=== PATIENT | male | born 1955 | race Caucasian/White ===

== ENCOUNTER 2022-02-20 08:20 | Day surgery (SDC) | payer MEDICARE ==
[2022-02-20] MEDS ORDERED: Depo-Medrol 40 MG/ML IM ONE (08:21)
[2022-02-20] MEDS ORDERED: Sodium Chloride 0.9(Preservative Free) 10 ML IJ ONE (08:21)
[2022-02-20] MEDS ORDERED: Xylocaine 1% Vial 30 ML PF IJ ONE (08:21)
[2022-02-20] MEDS ORDERED: DIPRIVAN 200 MG/20 ML IV ONE (09:58)
[2022-02-20] MEDS ORDERED: Lactated Ringers 1,000 ML IV ONE (11:00)
--- NOTE | 2022-02-20 17:33 | XRAY ---
Indication: Lumbar TL. Intraoperative fluoroscopy provided for 14 seconds. 2 digital spot image submitted for interpretation demonstrates midline posterior needle tip projecting just posterior to superior endplate of L4. Small amount of contrast injected for needle tip placement. Correlate with intraoperative findings/report.
--- NOTE | 2022-02-20 17:44 | XRAY ---
14 seconds of fluoroscopy was used in surgery for a lumbar TL.
== END 2022-02-20 10:30 | disposition home or self-care (01) ==
LOC: SDC-PAIN 08:20
PROVIDERS: ATTEND Psychiatry & Neurology Pain Medicine
DX: M54.16 Radiculopathy, lumbar region (principal); E11.9 Type 2 diabetes mellitus without complications; Z79.899 Other long term (current) drug therapy
CPT/HCPCS: 62323; 72100; 77003; 82947; J1030; J2001; J2704; Q9966

== ENCOUNTER 2022-03-13 06:55 | Day surgery (SDC) | payer MEDICARE ==
[2022-03-13] MEDS ORDERED: Depo-Medrol 40 MG/ML IM ONE (06:56)
[2022-03-13] MEDS ORDERED: BUPIVACAINE 0.5% VIAL IJ ONE (06:56)
[2022-03-13] MEDS ORDERED: DIPRIVAN 200 MG/20 ML IV ONE (08:42)
[2022-03-13] MEDS ORDERED: Lactated Ringers 1,000 ML IV ONE (14:23)
--- NOTE | 2022-03-13 17:57 | XRAY ---
Indication: Bilateral hip injection. Intraoperative fluoroscopy provided for 36 seconds. 2 digital spot images submitted for interpretation demonstrates needle tip projecting just lateral to the left and right femur necks. Small amount of contrast injected for both needle tip placement. Correlate with intraoperative findings/report.
--- NOTE | 2022-03-13 18:33 | XRAY ---
36 seconds of fluoroscopy was used in surgery for a bilateral intra-articular hip injection.
== END 2022-03-13 09:10 | disposition home or self-care (01) ==
LOC: SDC-PAIN 06:55
PROVIDERS: ATTEND Psychiatry & Neurology Pain Medicine
DX: M16.0 Bilateral primary osteoarthritis of hip (principal); E11.9 Type 2 diabetes mellitus without complications; Z79.899 Other long term (current) drug therapy
CPT/HCPCS: 20610; 73521; 77002; 82947; J1030; J2704; Q9966

== ENCOUNTER 2022-04-10 15:14 | Day surgery (SDC) | payer MEDICARE ==
[2022-04-10] MEDS ORDERED: LIDOCAINE HCL 1% 50 MG/5 ML VL PF IJ ONE (15:15)
[2022-04-10] MEDS ORDERED: Depo-Medrol 40 MG/ML IM ONE (15:15)
[2022-04-10] MEDS ORDERED: BUPIVACAINE 0.5% VIAL IJ ONE (15:15)
--- NOTE | 2022-04-10 18:46 | XRAY ---
Indication: Bilateral SI joint injection. Intraoperative fluoroscopy provided for 19 seconds. 4 digital spot image submitted for interpretation demonstrates posterior needle tip projecting over the left and right SI joint. Correlate with intraoperative findings/report.
--- NOTE | 2022-04-11 08:41 | XRAY ---
19 seconds of fluoroscopy was used in surgery for a bilateral sacroiliac joint injection.
== END 2022-04-10 17:36 | disposition home or self-care (01) ==
LOC: SDC-PAIN 15:14
PROVIDERS: ATTEND Psychiatry & Neurology Pain Medicine
DX: M46.1 Sacroiliitis, not elsewhere classified (principal); E11.9 Type 2 diabetes mellitus without complications; Z79.899 Other long term (current) drug therapy
CPT/HCPCS: 27096; 72202; 77002; 82947; J1030; J2001; G0260

== ENCOUNTER 2022-05-29 15:28 | Day surgery (SDC) | payer MEDICARE ==
[2022-05-29] MEDS ORDERED: Xylocaine 1% Vial 30 ML PF IJ ONE (15:29)
[2022-05-29] MEDS ORDERED: Depo-Medrol 40 MG/ML IM ONE (15:29)
[2022-05-29] MEDS ORDERED: BUPIVACAINE 0.5% VIAL IJ ONE (15:29)
--- NOTE | 2022-05-29 19:47 | XRAY ---
Indication: Bilateral hip injection. Intraoperative fluoroscopy provided for 31 seconds. 2 digital spot images submitted for interpretation demonstrates needle tip projecting lateral to the left and right femur neck. Small amount of contrast injected for needle tip placement. Correlate with intraoperative findings/report.
--- NOTE | 2022-05-30 19:54 | XRAY ---
31 seconds of fluoroscopy was used in surgery for bilateral intra-articular hip injections.
== END 2022-05-29 18:50 | disposition home or self-care (01) ==
LOC: SDC-PAIN 15:28
PROVIDERS: ATTEND Psychiatry & Neurology Pain Medicine
DX: M16.0 Bilateral primary osteoarthritis of hip (principal); E11.9 Type 2 diabetes mellitus without complications; Z79.899 Other long term (current) drug therapy
CPT/HCPCS: 20610; 73521; 77002; 82947; J1030; J2001; Q9966

== ENCOUNTER 2022-11-13 13:38 | Day surgery (SDC) | payer MEDICARE ==
[2022-11-13] MEDS ORDERED: Depo-Medrol 40 MG/ML IM ONE (13:39)
[2022-11-13] MEDS ORDERED: BUPIVACAINE 0.5% VIAL IJ ONE (13:39)
[2022-11-13] MEDS ORDERED: LIDOCAINE HCL 1% 50 MG/5 ML VL PF IJ ONE (13:39)
--- NOTE | 2022-11-14 07:16 | XRAY ---
Indication: Bilateral hip and bilateral greater trochanter bursa injection. Intraoperative fluoroscopy provided for 54 seconds. 4 digital spot image submitted for interpretation demonstrates needle tips projecting lateral to the left/right femur necks and lateral to the left/right greater trochanters. Small amount of contrast injected for all needle tip placement. Correlate with intraoperative findings/report.
--- NOTE | 2022-11-14 15:07 | XRAY ---
54 seconds of fluoroscopy was used in surgery for a bilateral intra-articular hip and greater trochanteric bursa injection.
== END 2022-11-13 15:15 | disposition home or self-care (01) ==
LOC: SDC-PAIN 13:38
PROVIDERS: ATTEND Psychiatry & Neurology Pain Medicine
DX: M16.0 Bilateral primary osteoarthritis of hip (principal); M70.62 Trochanteric bursitis, left hip; M70.61 Trochanteric bursitis, right hip; E11.9 Type 2 diabetes mellitus without complications; Z79.899 Other long term (current) drug therapy
CPT/HCPCS: 20610; 73522; 77002; 82947; J1030; J2001; Q9966

== ENCOUNTER 2023-01-08 14:42 | Day surgery (SDC) | payer MEDICARE ==
[2023-01-08] MEDS ORDERED: BUPIVACAINE 0.5% VIAL IJ ONE (14:43)
[2023-01-08] MEDS ORDERED: LIDOCAINE HCL 1% 50 MG/5 ML VL PF IJ ONE (14:43)
[2023-01-08] MEDS ORDERED: Depo-Medrol 40 MG/ML IM ONE (14:43)
--- NOTE | 2023-01-08 19:16 | XRAY ---
Indication: Bilateral SI joint injection. Intraoperative fluoroscopy provided for 26 seconds. 5 digital spot images submitted for interpretation demonstrates posterior needle tip projecting over the expected left and right SI joint. Correlate with intraoperative findings/report.
--- NOTE | 2023-01-09 10:12 | XRAY ---
26 seconds of fluoroscopy was used in surgery for a bilateral sacroiliac joint injection.
== END 2023-01-08 17:40 | disposition home or self-care (01) ==
LOC: SDC-PAIN 14:42
PROVIDERS: ATTEND Psychiatry & Neurology Pain Medicine
DX: M46.1 Sacroiliitis, not elsewhere classified (principal); E11.9 Type 2 diabetes mellitus without complications; Z79.899 Other long term (current) drug therapy
CPT/HCPCS: 27096; 72202; 77002; 82947; G0260; J1030; J2001

== ENCOUNTER 2023-04-02 14:32 | Day surgery (SDC) | payer MEDICARE ==
[2023-04-02] MEDS ORDERED: Sodium Chloride 0.9(Preservative Free) 10 ML IJ ONE (14:33)
[2023-04-02] MEDS ORDERED: LIDOCAINE HCL 1% 50 MG/5 ML VL PF IJ ONE (14:33)
[2023-04-02] MEDS ORDERED: Depo-Medrol 40 MG/ML IM ONE (14:33)
[2023-04-02] MEDS ORDERED: Lactated Ringers 1,000 ML IV ONE (17:32)
--- NOTE | 2023-04-02 20:15 | XRAY ---
Indication: Right L4-S1 transforaminal TL. Intraoperative fluoroscopy provided for 38 seconds. 9 digital spot images submitted for interpretation demonstrates posterior needle tips projecting over the expected right L4 and L5 nerve roots. Small amount of contrast injected for needle tip placement. Correlate with intraoperative findings/report.
--- NOTE | 2023-04-02 20:19 | XRAY ---
38 seconds of fluoroscopy was used in surgery for a right L4-S1 transforaminal TL.
== END 2023-04-02 17:55 | disposition home or self-care (01) ==
LOC: SDC-PAIN 14:32
PROVIDERS: ATTEND Psychiatry & Neurology Pain Medicine
DX: M54.16 Radiculopathy, lumbar region (principal); E11.9 Type 2 diabetes mellitus without complications; Z79.899 Other long term (current) drug therapy
CPT/HCPCS: 64483; 64484; 72100; 77003; 82947; J1030; J2001

== ENCOUNTER 2023-05-14 15:28 | Day surgery (SDC) | payer MEDICARE ==
[2023-05-14] MEDS ORDERED: Decadron 4 MG INJ IV ONE (15:29)
[2023-05-14] MEDS ORDERED: XYLOCAINE-MPF 1% 5ML SDV IJ ONE (15:29)
[2023-05-14] MEDS ORDERED: Sodium Chloride 0.9(Preservative Free) 10 ML IJ ONE (15:29)
[2023-05-14] MEDS ORDERED: Lactated Ringers 1,000 ML IV ONE (17:55)
--- NOTE | 2023-05-14 20:55 | XRAY ---
Indication: Right piriformis injection. Intraoperative fluoroscopy provided for 7 seconds. Single digital spot image submitted for interpretation demonstrates posterior needle tip projecting over right piriformis. Small amount of contrast injected for needle tip placement. Correlate with intraoperative findings/report.
--- NOTE | 2023-05-14 20:55 | XRAY ---
Indication: Right L4-S1 transforaminal TL. Intraoperative fluoroscopy provided for 40 seconds. 8 digital spot images submitted for interpretation demonstrates posterior needle tips projecting over the right L4 and L5 nerve roots. Small amount of contrast injected for needle tip placement. Correlate with intraoperative findings/report.
--- NOTE | 2023-05-15 08:46 | XRAY ---
7 seconds of fluoroscopy was used in surgery for a right piriformis injection.
--- NOTE | 2023-05-15 08:46 | XRAY ---
40 seconds of fluoroscopy was used in surgery for a right L4-S1 transforaminal TL.
== END 2023-05-14 17:48 | disposition home or self-care (01) ==
LOC: SDC-PAIN 15:28
PROVIDERS: ATTEND Psychiatry & Neurology Pain Medicine
DX: M54.16 Radiculopathy, lumbar region (principal); M79.18 Myalgia, other site; E11.9 Type 2 diabetes mellitus without complications; Z79.899 Other long term (current) drug therapy
CPT/HCPCS: 20552; 64483; 64484; 72100; 72170; 77002; 77003; 82947; J1100; Q9966

== ENCOUNTER 2023-07-02 14:42 | Day surgery (SDC) | payer MEDICARE ==
[2023-07-02] MEDS ORDERED: BUPIVACAINE 0.5% VIAL IJ ONE (14:43)
[2023-07-02] MEDS ORDERED: XYLOCAINE-MPF 1% 5ML SDV IJ ONE (14:43)
[2023-07-02] MEDS ORDERED: Depo-Medrol 40 MG/ML IM ONE (14:43)
[2023-07-02] MEDS ORDERED: Lactated Ringers 1,000 ML IV ONE (16:44)
--- NOTE | 2023-07-02 16:52 | XRAY ---
Indication: Right L4-S1 RFA. Intraoperative fluoroscopy provided for 28 seconds. 5 digital spot image submitted for interpretation demonstrates posterior needle tips projecting over the expected right L4-S1 nerve roots. Correlate with intraoperative findings/report.
--- NOTE | 2023-07-02 16:57 | XRAY ---
28 seconds of fluoroscopy was used in surgery for a right L4-S1 RFA.
== END 2023-07-02 16:40 | disposition home or self-care (01) ==
LOC: SDC-PAIN 14:42
PROVIDERS: ATTEND Psychiatry & Neurology Pain Medicine
DX: M47.816 Spondylosis without myelopathy or radiculopathy, lumbar region (principal); E11.9 Type 2 diabetes mellitus without complications
CPT/HCPCS: 64635; 64636; 72100; 77002; 82947; J1030

== ENCOUNTER 2023-07-09 13:08 | Day surgery (SDC) | payer MEDICARE ==
[2023-07-09] MEDS ORDERED: BUPIVACAINE 0.5% VIAL IJ ONE (13:09)
[2023-07-09] MEDS ORDERED: XYLOCAINE-MPF 1% 5ML SDV IJ ONE (13:09)
[2023-07-09] MEDS ORDERED: Depo-Medrol 40 MG/ML IM ONE (13:09)
[2023-07-09] MEDS ORDERED: Lactated Ringers 1,000 ML IV ONE (16:35)
--- NOTE | 2023-07-09 20:52 | XRAY ---
Indication: Left L4-S1 RFA. Intraoperative fluoroscopy provided for 20 seconds. 6 digital spot images submitted for interpretation demonstrates posterior needle tips projecting over the expected left L4-S1 nerve roots. Correlate with intraoperative findings/report.
--- NOTE | 2023-07-10 09:17 | XRAY ---
20 seconds of fluoroscopy was used in surgery for a left L4-S1 RFA.
== END 2023-07-09 17:21 | disposition home or self-care (01) ==
LOC: SDC-PAIN 13:08
PROVIDERS: ATTEND Psychiatry & Neurology Pain Medicine
DX: M47.816 Spondylosis without myelopathy or radiculopathy, lumbar region (principal); E11.9 Type 2 diabetes mellitus without complications
CPT/HCPCS: 64635; 64636; 72100; 77002; 82947; J1030

== ENCOUNTER 2024-06-09 15:10 | Day surgery (SDC) | payer MEDICARE ==
[2024-06-09] MEDS ORDERED: LIDOCAINE HCL 1% AMPUL 5 ML IJ ONE (15:11)
[2024-06-09] MEDS ORDERED: Depo-Medrol 40 MG/ML IM ONE (15:11)
[2024-06-09] MEDS ORDERED: BUPIVACAINE 0.5% VIAL IJ ONE (15:11)
--- NOTE | 2024-06-09 19:33 | XRAY ---
Indication: Bilateral hip and bilateral greater trochanter bursa injection. Intraoperative fluoroscopy provided for 36 seconds. 4 digital spot image submitted for interpretation demonstrates needle tips lateral to left/right femur necks and left/right greater trochanters. Small amount of contrast injected for all needle tip placement. Correlate with intraoperative findings/report.
--- NOTE | 2024-06-09 19:35 | XRAY ---
36 seconds of fluoroscopy used in surgery for bilateral intra-articular hip and bilateral greater trochanteric bursa injections.
== END 2024-06-09 17:12 ==
LOC: SDC-PAIN 15:10
PROVIDERS: ATTEND Psychiatry & Neurology Pain Medicine
DX: M16.0 Bilateral primary osteoarthritis of hip (principal); M70.62 Trochanteric bursitis, left hip; M70.61 Trochanteric bursitis, right hip; E11.9 Type 2 diabetes mellitus without complications
CPT/HCPCS: 20610; 73522; 77002; 82947; Q9966

== ENCOUNTER 2024-07-08 12:17 | Day surgery (SDC) | payer MEDICARE ==
[2024-07-08] MEDS ORDERED: LIDOCAINE HCL 1% 50 MG/5 ML VL IJ ONE (12:18)
[2024-07-08] MEDS ORDERED: BUPIVACAINE 0.5% VIAL IJ ONE (12:18)
[2024-07-08] MEDS ORDERED: methylPREDNISolone acetate IM ONE (12:18)
--- NOTE | 2024-07-08 17:15 | XRAY ---
Indication: Bilateral SI joint injection. Intraoperative fluoroscopy provided for 40 seconds. 2 digital spot images submitted for interpretation demonstrates posterior needle tips projecting over left and right SI joints. Small amount of contrast injected for needle tip placement. Correlate with intraoperative findings/report.
--- NOTE | 2024-07-08 17:32 | XRAY ---
40 seconds of fluoroscopy was used in surgery for a bilateral sacroiliac joint injection.
== END 2024-07-08 16:17 | disposition home or self-care (01) ==
LOC: SDC-PAIN 12:17
PROVIDERS: ATTEND Psychiatry & Neurology Pain Medicine
DX: M46.1 Sacroiliitis, not elsewhere classified (principal); E11.9 Type 2 diabetes mellitus without complications
CPT/HCPCS: 27096; 72202; 77002; 82947; J1010; Q9966

== ENCOUNTER 2025-04-13 14:43 | Day surgery (SDC) | payer MEDICARE ==
[2025-04-13] MEDS ORDERED: LIDOCAINE HCL 1% 50 MG/5 ML VL IJ ONE (14:44)
[2025-04-13] MEDS ORDERED: Sensorcaine 0.25% 10 ML IJ ONE (14:44)
[2025-04-13] MEDS ORDERED: methylPREDNISolone acetate IM ONE (14:44)
[2025-04-13] MEDS ORDERED: Lactated Ringers 1,000 ML IV ONE (18:15)
--- NOTE | 2025-04-13 20:28 | XRAY ---
Indication: Right L4-S1 RFA. Intraoperative fluoroscopy provided for 24 seconds. 3 digital spot image submitted for interpretation demonstrates posterior needle tips projecting over expected right L4-S1 nerve roots. Correlate with intraoperative findings/report.
--- NOTE | 2025-04-13 20:37 | XRAY ---
24 seconds of fluoroscopy were used in surgery for a right L4-S1 RFA.
== END 2025-04-13 18:45 | disposition home or self-care (01) ==
LOC: SDC-PAIN 14:43
PROVIDERS: ATTEND Psychiatry & Neurology Pain Medicine
DX: M47.816 Spondylosis without myelopathy or radiculopathy, lumbar region (principal); E11.9 Type 2 diabetes mellitus without complications

== ENCOUNTER 2025-04-27 14:59 | Day surgery (SDC) | payer MEDICARE ==
[2025-04-27] MEDS ORDERED: methylPREDNISolone acetate IM ONE (15:00)
[2025-04-27] MEDS ORDERED: LIDOCAINE HCL 1% 50 MG/5 ML VL IJ ONE (15:00)
[2025-04-27] MEDS ORDERED: BUPIVACAINE 0.5% VIAL IJ ONE (15:00)
[2025-04-27] MEDS ORDERED: Lactated Ringers 1,000 ML IV ONE (15:56)
--- NOTE | 2025-04-27 20:01 | XRAY ---
Indication: Left L4-S1 RFA. Intraoperative fluoroscopy provided for 35 seconds. 4 digital spot image submitted for interpretation demonstrates posterior needle tips projecting over expected left L4-S1 nerve roots. Correlate with intraoperative findings/report.
--- NOTE | 2025-04-28 09:18 | XRAY ---
35 seconds of fluoroscopy was used in surgery for a left L4-S1 RFA.
== END 2025-04-27 17:48 | disposition home or self-care (01) ==
LOC: SDC-PAIN 14:59
PROVIDERS: ATTEND Psychiatry & Neurology Pain Medicine
DX: M47.817 Spondylosis without myelopathy or radiculopathy, lumbosacral region (principal); E11.9 Type 2 diabetes mellitus without complications